=== PATIENT | male | born 1980 | race Caucasian/White ===

== ENCOUNTER → 2020-04-28 | Outpatient (CLI) | payer BC ==
--- NOTE | 2020-04-29 14:57 | RADIOLOGY REPORT (SQ) ---
EXAM DESCRIPTION: MRI LT UPPER JOINT WITHOUT IMAGES COMPLETED DATE/TIME: 04/28/2020 10:06 am REASON FOR STUDY: (S46.102A)UNSP INJURY OF MUSC/FASC/TEND LONG HD BICEP, LEFT ARM, INIT S46.102A UN SP INJURY OF MUSC/FASC/TEND LONG HD BICEP, LEFT A COMPARISON: None. TECHNIQUE: Left shoulder images acquired and stored on PACS. Multiplanar imaging to include fat sens itive sequences such as T1, water sensitive sequences such as FST2/STIR, cartilage sensitive sequence s such as FSPD/gradient-echo sequences. LIMITATIONS: Motion. FINDINGS: BONE MARROW AND CORTEX: No worrisome bone lesions or marrow replacement. No occult fractur es. JOINT OR BURSAL EFFUSION: No significant joint or bursal fluid. No suggestion of loose bodies. GLENO-HUMERAL ARTICULATION: Normal articulation. No subluxation. No cystic change. No osteophytes or cartilage loss. ACROMION AND AC JOINT: Type 1 acromion. No down-sloping or distal spur. Sub-acromial space maintain ed. No significant AC joint arthropathy. ROTATOR CUFF AND INTERVAL: Partial-thickness intrasubstance tear posterior supraspinatus tendon. No rotator interval tear. No rotator interval thickening to suggest adhesive capsulitis. LABRUM AND BICEPS LABRAL COMPLEX: Intact. No labral tear. Intra-articular long-head biceps tendon n ormal. Distal biceps in normal location in bicipital groove. REMAINDER OF LABRUM AND IGHL : No gross tear or paralabral cyst formation. Labral evaluation is less than optimal without joint distention. No thickening of IGHL to suggest adhesive capsulitis. PERIARTICULAR AND ADJACENT SOFT TISSUES: No masses or abnormal nodes. OTHER: No other significant finding. IMPRESSION: Partial-thickness intrasubstance tear posterior supraspinatus tendon. TECHNICAL DOCUMENTATION: JOB ID: [id number] 2010 [employer] All Rights Reserved Reading location - IP/workstation name: [email or web address]
== END ==
LOC: RAD 09:03
PROVIDERS: ATTEND Physician Assistant
DX: S46.102A Unspecified injury of muscle, fascia and tendon of long head of biceps, left arm, initial encounter (principal); X58.XXXA Exposure to other specified factors, initial encounter

== ENCOUNTER → 2020-05-01 | Outpatient (CLI) | payer BC ==
--- NOTE | 2020-05-01 16:42 | RADIOLOGY REPORT (SQ) ---
EXAM DESCRIPTION: VENOUS UNILATERAL UPPER IMAGES COMPLETED DATE/TIME: 05/01/2020 4:10 pm REASON FOR STUDY: LUE SWELLING COMPARISON: None. TECHNIQUE: Dynamic and static hernandez scale and color images acquired of the left arm venous system. Se lected spectral images acquired with additional compression and augmentation maneuvers. The contralat eral subclavian vein and internal jugular vein were also imaged. Images stored on PACS. LIMITATIONS: None. FINDINGS: INTERNAL JUGULAR VEIN: Normal phasicity, compression, augmentation. No visualized echogeni c material on hernandez scale. No defects on color images. Comparison opposite side normal. SUBCLAVIAN VEIN: Occlusive thrombus is demonstrated. AXILLARY VEIN: Occlusive thrombus is demonstrated. BRACHIAL VEIN: Occlusive thrombus is demonstrated. BASILIC VEIN: Occlusive thrombus is demonstrated. CEPHALIC VEIN: Normal compression, augmentation. No visualized echogenic material on hernandez scale. No d efects on color images. OTHER: No other significant finding. CONTRALATERAL SUBCLAVIAN VEIN AND INTERNAL JUGULAR VEIN: Not evaluated. IMPRESSION: Occlusive thrombus is seen within the subclavian, axillary, brachial, and basilic veins. TECHNICAL DOCUMENTATION: JOB ID: [id number] 2010 [employer]- All Rights Reserved Reading location - IP/workstation name: [email or web address]
== END ==
LOC: RAD 14:33
PROVIDERS: ATTEND Physician Assistant
DX: I82.B12 Acute embolism and thrombosis of left subclavian vein (principal); M25.512 Pain in left shoulder; R22.32 Localized swelling, mass and lump, left upper limb
CPT/HCPCS: 93971